=== PATIENT | female | born 1990 | race Caucasian/White ===

== ENCOUNTER 2017-02-11 07:56 | Inpatient (IN) | payer BC ==
[2017-02-11] MEDS ORDERED: Ampicillin 2 GM in Sodium Chloride 0.9% 100 ML IV ONE (08:17)
[2017-02-11] MEDS ORDERED: Nalbuphine 10 MG/1 ML Vial IVPUSH PRN (08:17)
[2017-02-11] MEDS ORDERED: Lidocaine 1% 50 ML MDV INJECT PRN (08:17)
[2017-02-11] MEDS ORDERED: Sodium Chloride 0.9% 10 ML Syringe FLUSH PRN (08:17)
[2017-02-11] MEDS ORDERED: Misoprostol 200 MCG Tab PO PRN (08:17)
[2017-02-11] MEDS ORDERED: Water For Irrigation,Sterile 1,000 ML Container IRR PRN (08:17)
[2017-02-11] MEDS ORDERED: Sodium Chloride 0.9% 2.5 ML Syringe FLUSH PRN (08:17)
[2017-02-11] MEDS ORDERED: Butorphanol 1 MG/ML SDV IVPUSH PRN (08:17)
[2017-02-11] MEDS ORDERED: Carboprost Tromethamine 250 MCG/1 ML Amp IM PRN (08:17)
[2017-02-11] MEDS ORDERED: Methylergonovine 0.2 MG/1 ML Amp IM PRN (08:17)
[2017-02-11] MEDS ORDERED: Terbutaline 1 MG/ML SDV SUBCUT PRN ×2 (08:19→16:37)
[2017-02-11] MEDS ORDERED: Oxytocin/0.9 % Sodium Chloride 30 UNIT/500 ML BAG IV SCH (08:30)
[2017-02-11] MEDS: Lactated Ringers 1,000 ML IV SCH (08:51)
--- NOTE | 2017-02-11 10:54 | PCM.LDHP ---
L&D History of Present Illness - General Date of Service: 02/11/17 Admit Problem/Dx: Patient Status Order with Admit Dx/Problem 02/11/17 08:17 Patient Status [ADT] Routine Admission Diagnosis/Problem Admission Diagnosis/Problem 02/11/17 10:51 26 yo 39 1/7wks EDC 02/17/2017, O+, R-equivocal, GBS pos. 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 Source of Information: Patient History Limitations: Reports: No Limitations - History of Present Illness Introduction:: Term; social Improves with: Reports: None Worsens with: Reports: None Associated Symptoms: Reports: N - Related Data Allergies/Adverse Reactions: Allergies Allergy/AdvReac Type Severity Reaction Status Date / Time No Known Allergies Allergy Verified 03/27/15 22:52 Past Medical History HEENT History: Reports: None Gastrointestinal History: Reports: None PLATEMAN History: Reports: Psychiatric History: Reports: Anxiety, Depression Dermatologic History: Reports: Psoriasis - Infectious Disease History Infectious Disease History: Reports: Chicken Pox, Herpes - Past Surgical History HEENT Surgical History: Reports: Adenoidectomy, Tonsillectomy GI Surgical History: Reports: Appendectomy Social & Family History - Family History HEENT: Reports: Impaired Vision Cardiac: Reports: Heart Failure, Hypertension : Reports: Pyelonephritis OBGYN: Reports: , Recurrent Spontaneous Musculoskeletal: Reports: Arthritis, RA Neurological: Reports: Alzheimers Disease Psychiatric: Reports: Anxiety, Autism, Depression, Mood Swings, Panic Attack Endocrine/Metabolic: Reports: Diabetes, Type I, Hypothyroidism Oncologic: Reports: Lung, Skin, Other (See Below) Other Oncologic Family History: melanoma - Tobacco Use Smoking Status *Q: Former Smoker Used Tobacco, but Quit: Yes Month Tobacco Last Used: 2011 Second Hand Smoke Exposure: No - Recreational Drug Use Recreational Drug Use: No H&P Review of Systems - Review of Systems: Review Of Systems: See Below General: Reports: No Symptoms HEENT: Reports: No Symptoms Pulmonary: Reports: No Symptoms Cardiovascular: Reports: No Symptoms Gastrointestinal: Reports: No Symptoms Genitourinary: Reports: No Symptoms Musculoskeletal: Reports: No Symptoms Skin: Reports: No Symptoms Psychiatric: Reports: No Symptoms Neurological: Reports: No Symptoms Hematologic/Lymphatic: Reports: No Symptoms Immunologic: Reports: No Symptoms L&D Exam - Exam Exam: See Below - Vital Signs Weight: 74.843 kg - OB Specific Contraction Intensity: Mild Movement: Active Heart Tones: Present Heart Rate (FHR) Variability: Moderate (6-25 bmp) Presentation: Vertex - Garvin Score Garvin Score Cervix Position: Midposition Garvin Score Consistency: Soft Garvin Score Effacement: 51-70% Garvin Score Dilation: 3-4 cm Garvin Score Infant's Station: -2 Garvin Score Total: 8 - Exam General: Alert, Oriented, Cooperative HEENT: Hearing Intact Lungs: Normal Respiratory Effort GI/Abdominal Exam: Soft, Non-Tender, No Organomegaly (gravid) Rectal Exam: Deferred Genitourinary: Cervical dilitation Back Exam: Full Range of Motion Extremities: Normal Range of Motion, Non-Tender, No Pedal Edema, Normal Capillary Refill Skin: Warm, Dry, Intact Neurological: Reflexes Equal Bilateral, Normal Speech Psychiatric: Alert, Normal Affect, Normal Mood - Patient Data Lab Results Last 24 hrs: Laboratory Results - last 24 hr 02/11/17 02/11/17 Range/Units 08:41 08:41 WBC 11.38 H (4.0-11.0) K/uL RBC 3.53 L (4.30-5.90) M/uL Hgb 9.2 L (12.0-16.0) g/dL Hct 27.9 L (36.0-46.0) % MCV 79.0 L (80.0-98.0) fL MCH 26.1 L (27.0-32.0) pg MCHC 33.0 (31.0-37.0) g/dL RDW Std Deviation 44.4 (28.0-62.0) fl RDW Coeff of Elliott 15 (11.0-15.0) % Plt Count 281 (150-400) K/uL MPV 10.70 (7.40-12.00) fL Nucleated RBC % 0.0 /100WBC Nucleated RBCs # 0 K/uL Blood Type O POSITIVE Antibody Screen NEGATIVE Result Diagrams: 02/11/17 08:41 - Problem List (1) Supervision of normal IUP (intrauterine ) in multigravida SNOMED Code(s): 786264227, 631051075 ICD Code: Z34.80 - ENCOUNTER FOR SUPRVSN OF NORMAL , UNSP TRIMESTER Status: Acute Priority: High Current Visit: Yes Qualifiers: Trimester: third trimester Qualified Code(s): Z34.83 - Encounter for supervision of other normal , third trimester Problem List Initiated/Reviewed/Updated: Yes Orders Last 24hrs: Active Orders 24 hr Category Date Time Status Patient Status [ADT] Routine ADT 02/11/17 08:17 Active Bedrest Bathroom Privileges [RC] ASDIRECTED Care 02/11/17 08:19 Active Communication Order [RC] ASDIRECTED Care 02/11/17 08:19 Active Communication Order [RC] ASDIRECTED Care 02/11/17 08:19 Active Heart Tones [RC] CONTINUOUS Care 02/11/17 08:17 Active Non Stress Test [RC] PER UNIT ROUTINE Care 02/11/17 08:17 Active May Shower [RC] ASDIRECTED Care 02/11/17 08:17 Active Notify Provider [RC] PRN Care 02/11/17 08:17 Active Notify Provider [RC] PRN Care 02/11/17 08:19 Active Oxygen Therapy [RC] ASDIRECTED Care 02/11/17 08:19 Active Up ad Keyonna [RC] ASDIRECTED Care 02/11/17 08:17 Active Vaginal Exam [RC] PRN Care 02/11/17 08:17 Active Vaginal Exam [RC] PRN Care 02/11/17 08:19 Active Vital Signs [RC] PER UNIT ROUTINE Care 02/11/17 08:17 Active Vital Signs [RC] PER UNIT ROUTINE Care 02/11/17 08:19 Active Ampicillin 1 gm Med 02/11/17 13:00 Active Sodium Chloride 0.9% [Normal Saline] 50 ml IV Q4H Butorphanol [Stadol] Med 02/11/17 08:17 Active 1 mg IVPUSH Q1H PRN Carboprost Tromethamine [Hemabate DS] Med 02/11/17 08:17 Active 250 mcg IM ASDIRECTED PRN Lactated Ringers [Ringers, Lactated] 1,000 ml Med 02/11/17 08:30 Active IV ASDIRECTED Lidocaine 1% [Xylocaine 1%] Med 02/11/17 08:17 Active 50 ml INJECT .ONCE PRN Methylergonovine [Methergine] Med 02/11/17 08:17 Active 0.2 mg IM ASDIRECTED PRN Misoprostol [Cytotec] Med 02/11/17 08:17 Active 200 mcg PO .ONCE PRN Nalbuphine [Nubain] Med 02/11/17 08:17 Active 10 mg IVPUSH Q1H PRN Oxytocin/0.9 % Sodium Chloride [Oxytocin 30 Unit/500 ML Med 02/11/17 08:30 Active -NS] 30 unit in 500 ml IV TITRATE Sodium Chloride 0.9% [Saline Flush] Med 02/11/17 08:17 Active 10 ml FLUSH ASDIRECTED PRN Sodium Chloride 0.9% [Saline Flush] Med 02/11/17 08:17 Active 2.5 ml FLUSH ASDIRECTED PRN Terbutaline [Brethine] Med 02/11/17 08:19 Active 0.25 mg SUBCUT ASDIRECTED PRN Water For Irrigation,Sterile [Sterile Water for Med 02/11/17 08:17 Active Irrigation] 1,000 ml IRR ASDIRECTED PRN Scalp Electrode [WOMSER] Per Unit Routine Oth 02/11/17 08:17 Ordered Medication Administration Instruction [OM.PC] Q3H Oth 02/11/17 08:30 Ordered Peripheral IV Insertion Adult [OM.PC] Routine Oth 02/11/17 08:17 Ordered Resuscitation Status Routine Resus Stat 02/11/17 08:17 Ordered Medication Orders Butorphanol Tartrate (Stadol) 1 mg IVPUSH Q1H PRN PRN Reason: Pain Carboprost Tromethamine (Hemabate Ds) 250 mcg IM ASDIRECTED PRN PRN Reason: Post Hemorrhage Lactated Ringer's (Ringers, Lactated) 1,000 mls @ 150 mls/hr IV ASDIRECTED ROSY Last Admin: 02/11/17 08:51 Dose: 150 mls/hr Oxytocin/Sodium Chloride (Oxytocin 30 Unit/500 Ml-Ns) 30 unit in 500 mls @ 2 mls/hr IV TITRATE ROSY; 2 MUNITS/MIN PRN Reason: Protocol Last Titration: 02/11/17 10:48 Dose: 6 munits/min, 6 mls/hr Titration: 02/11/17 10:08 Dose: 4 munits/min, 4 mls/hr Admin: 02/11/17 09:36 Dose: 2 munits/min, 2 mls/hr Ampicillin Sodium 1 gm/ Sodium (Chloride) 50 mls @ 100 mls/hr IV Q4H ROSY Lidocaine HCl (Xylocaine 1%) 50 ml INJECT .ONCE PRN PRN Reason: Laceration repair Methylergonovine Maleate (Methergine) 0.2 mg IM ASDIRECTED PRN PRN Reason: Post Hemorrhage Misoprostol (Cytotec) 200 mcg PO .ONCE PRN PRN Reason: Post Hemorrhage Nalbuphine HCl (Nubain) 10 mg IVPUSH Q1H PRN PRN Reason: Pain (severe 7-10) Sodium Chloride (Saline Flush) 10 ml FLUSH ASDIRECTED PRN PRN Reason: Keep Vein Open Sodium Chloride (Saline Flush) 2.5 ml FLUSH ASDIRECTED PRN PRN Reason: Keep Vein Open Sterile Water (Sterile Water For Irrigation) 1,000 ml IRR ASDIRECTED PRN PRN Reason: delivery Terbutaline Sulfate (Brethine) 0.25 mg SUBCUT ASDIRECTED PRN PRN Reason: Tacysystole Assessment/Plan Comment:: IOL A: 26 yo 39 7wks EDC 02/17/2017, O+, R-equivocal, GBS pos. 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 Dr Goodson updated on pt status
[2017-02-11] MEDS: Ampicillin 1 GM in Sodium Chloride 0.9% 50 ML IV SCH ×3 (13:12→21:05)
[2017-02-11] MEDS ORDERED: Misoprostol 25 MCG (1/4 of 100 MCG) Tab VAG PRN (16:37)
[2017-02-11] MEDS ORDERED: Misoprostol 25 MCG (1/4 of 100 MCG) Tab PO ONE (16:39)
[2017-02-11] MEDS ORDERED: Misoprostol 25 MCG (1/4 of 100 MCG) Tab PO PRN (16:40)
[2017-02-11] MEDS ORDERED: Misoprostol 25 MCG (1/4 of 100 MCG) Tab VAG SCH (16:45)
[2017-02-11] MEDS ORDERED: hydrOXYzine Pamoate 25 MG Cap PO ONE (21:45)
[2017-02-11] MEDS ORDERED: hydrOXYzine Pamoate 25 MG Cap ONE (21:51)
[2017-02-12] MEDS: Ampicillin 1 GM in Sodium Chloride 0.9% 50 ML IV SCH ×4 (01:09→13:11)
[2017-02-12] MEDS: Lactated Ringers 1,000 ML IV SCH ×2 (05:35→09:48)
--- NOTE | 2017-02-12 09:54 | PCM.PREANE ---
Preanesthetic Assessment - Anesthesia/Transfusion/Family Hx Anesthesia History: Prior Anesthesia Without Reaction Transfusion History: Prior Transfusion Without Reaction - Review of Systems General: No Symptoms Pulmonary: No Symptoms Cardiovascular: No Symptoms Gastrointestinal: No Symptoms Neurological: No Symptoms Other: Reports: None - Physical Assessment Height: 5 ft 3 in Weight: 74.843 kg ASA Class: 2 Mental Status: Alert & Oriented x3 Airway Class: Mallampati = 2 Dentition: Reports: Normal Dentition Thyro-Mental Finger Breadths: 3 Mouth Opening Finger Breadths: 3 ROM/Head Extension: Full Lungs: Clear to Auscultation, Normal Respiratory Effort Cardiovascular: Regular Rate, Regular Rhythm - Lab Values: Laboratory Last Values WBC 11.38 K/uL (4.0-11.0) H 02/11/17 08:41 RBC 3.53 M/uL (4.30-5.90) L 02/11/17 08:41 Hgb 9.2 g/dL (12.0-16.0) L 02/11/17 08:41 Hct 27.9 % (36.0-46.0) L 02/11/17 08:41 MCV 79.0 fL (80.0-98.0) L 02/11/17 08:41 MCH 26.1 pg (27.0-32.0) L 02/11/17 08:41 MCHC 33.0 g/dL (31.0-37.0) 02/11/17 08:41 RDW Std Deviation 44.4 fl (28.0-62.0) 02/11/17 08:41 RDW Coeff of Elliott 15 % (11.0-15.0) 02/11/17 08:41 Plt Count 281 K/uL (150-400) 02/11/17 08:41 MPV 10.70 fL (7.40-12.00) 02/11/17 08:41 Nucleated RBC % 0.0 /100WBC 02/11/17 08:41 Nucleated RBCs # 0 K/uL 02/11/17 08:41 Blood Type O POSITIVE 02/11/17 08:41 Antibody Screen NEGATIVE 02/11/17 08:41 - Allergies Allergies/Adverse Reactions: Allergies Allergy/AdvReac Type Severity Reaction Status Date / Time No Known Allergies Allergy Verified 03/27/15 22:52 - Acknowledgements Anesthesia Type Planned: Epidural Pt an Appropriate Candidate for the Planned Anesthesia: Yes Alternatives and Risks of Anesthesia Discussed w Pt/Guardian: Yes Pt/Guardian Understands and Agrees with Anesthesia Plan: Yes PreAnesthesia Questionnaire HEENT History: Reports: None Cardiovascular History: Reports: None Respiratory History: Reports: None Gastrointestinal History: Reports: GERD Genitourinary History: Reports: None NURSE COORDINATOR History: Reports: : 3 Para: 2 LMP (Approximate): Psychiatric History: Reports: Anxiety, Depression Endocrine/Metabolic History: Reports: None Hematologic History: Reports: None Immunologic History: Reports: None Oncologic (Cancer) History: Reports: None Dermatologic History: Reports: Psoriasis - Infectious Disease History Infectious Disease History: Reports: Chicken Pox, Herpes - Past Surgical History HEENT Surgical History: Reports: Adenoidectomy, Tonsillectomy GI Surgical History: Reports: Appendectomy - SUBSTANCE USE Smoking Status *Q: Former Smoker Tobacco Use Within Last Twelve Months: No Second Hand Smoke Exposure: No Recreational Drug Use History: No - CURRENT (IN HOUSE) MEDS Current Meds: Current Medications Butorphanol Tartrate (Stadol) 1 mg IVPUSH Q1H PRN PRN Reason: Pain Carboprost Tromethamine (Hemabate Ds) 250 mcg IM ASDIRECTED PRN PRN Reason: Post Hemorrhage Lactated Ringer's (Ringers, Lactated) 1,000 mls @ 150 mls/hr IV ASDIRECTED ROSY Last Admin: 02/12/17 09:48 Dose: 999 mls/hr Oxytocin/Sodium Chloride (Oxytocin 30 Unit/500 Ml-Ns) 30 unit in 500 mls @ 2 mls/hr IV TITRATE ROSY; 2 MUNITS/MIN PRN Reason: Protocol Last Titration: 02/12/17 09:44 Dose: 8 munits/min, 8 mls/hr Ampicillin Sodium 1 gm/ Sodium (Chloride) 50 mls @ 100 mls/hr IV Q4H ROSY Last Admin: 02/12/17 09:08 Dose: 100 mls/hr Lidocaine HCl (Xylocaine 1%) 50 ml INJECT .ONCE PRN PRN Reason: Laceration repair Methylergonovine Maleate (Methergine) 0.2 mg IM ASDIRECTED PRN PRN Reason: Post Hemorrhage Misoprostol (Cytotec) 200 mcg PO .ONCE PRN PRN Reason: Post Hemorrhage Misoprostol (Cytotec) 25 mcg VAG .ONCE ROSY Last Admin: 02/11/17 17:29 Dose: 25 mcg Misoprostol (Cytotec) 25 mcg VAG Q4H PRN PRN Reason: Cervical Ripening Last Admin: 02/11/17 21:11 Dose: 25 mcg Misoprostol (Cytotec) 25 mcg PO Q4H PRN PRN Reason: Other Last Admin: 02/11/17 21:09 Dose: 25 mcg Nalbuphine HCl (Nubain) 10 mg IVPUSH Q1H PRN PRN Reason: Pain (severe 7-10) Sodium Chloride (Saline Flush) 10 ml FLUSH ASDIRECTED PRN PRN Reason: Keep Vein Open Sodium Chloride (Saline Flush) 2.5 ml FLUSH ASDIRECTED PRN PRN Reason: Keep Vein Open Sterile Water (Sterile Water For Irrigation) 1,000 ml IRR ASDIRECTED PRN PRN Reason: delivery Terbutaline Sulfate (Brethine) 0.25 mg SUBCUT ASDIRECTED PRN PRN Reason: Tacysystole Terbutaline Sulfate (Brethine) 0.25 mg SUBCUT ASDIRECTED PRN PRN Reason: Tacysystole Discontinued Medications Hydroxyzine Pamoate (Vistaril) 50 mg PO ONETIME ONE Stop: 02/11/17 21:46 Last Admin: 02/11/17 21:57 Dose: 50 mg Hydroxyzine Pamoate (Vistaril) Confirm Administered Dose 50 mg .ROUTE .STK-MED ONE Stop: 02/11/17 21:52 Ampicillin Sodium 2 gm/ Sodium (Chloride) 100 mls @ 200 mls/hr IV ONETIME ONE Stop: 02/11/17 08:46 Last Admin: 02/11/17 08:52 Dose: 200 mls/hr Misoprostol (Cytotec) 25 mcg PO ONETIME ONE Stop: 02/11/17 16:40 Last Admin: 02/11/17 17:27 Dose: 25 mcg
[2017-02-12] MEDS ORDERED: fentaNYL 100 MCG/2 ML SDV ONE (09:58)
[2017-02-12] MEDS ORDERED: Ropivacaine HCl/PF 100 ML ONE (09:58)
--- NOTE | 2017-02-12 16:41 | PCM.DEL ---
L & D Note - General Info Date of Service: 02/12/17 Mother's Due Date: 02/17/17 - Delivery Note Cervical Ripening Method: Misoprostil, Oxytocin Delivery Outcome: Livebirth Infant Delivery Method: Spontaneous Vaginal Delivery-Single Delivery Mode: Spontaneous Presentation: Vertex Nuchal Cord: Present Anesthesia Type: Epidural Amniotic Fluid Description: Clear Episiotomy Type: None Laceration: None Suture size: 3-0 Placenta: Intact, Spontaneous Cord: 3 Vessels Estimated Blood Loss: 150 Resuscitation Needed: No : Warmed Score 1 min: 8 Score 5 min: 9 Second Stage Interventions: Reports: Pushing Effectively, Pushing, Pulls Own Legs Back Delivery Comments (Free Text/Narrative):: of viable female over intact perineum. Head delivered with great pushing, nuchel x1 reduced over head, compound left arm with head, should and body followed easily. to mothers abdomen with RN at for evaluation. Spont cry. Delayed cord clamping. Pitocin to IVF. Cord clamped and cut by FOB. Cord blood collected. Placenta delivered grossly intact. Bimanual normal. Inspection noted intact perineum. EBL 150cc, APGARS 8/9, WT pending bonding. Mother and baby left in stable condition for recovery. Induction Criteria - Garvin Score Garvin Score Dilation: 3-4 cm Garvin Score Effacement: 60-70% Garvin Score Infant's Station: -2 Garvin Score Consistency: Soft Garvin Score Cervix Position: Midposition Garvin Score Total: 8 Garvin Score Presenting Part: Reports: Cephalic - Induction Gestational Age >/= 39 wks: Yes Medical Indication: Social Estimated Pelvis: Reports: Adequate Reassuring Monitoring Strip: Yes Absence of Tachy Systole: Yes - General Info Date of Service: 02/12/17 Admission Dx/Problem (Free Text): Patient Status Order with Admit Dx/Problem 02/11/17 08:17 Patient Status [ADT] Routine Admission Diagnosis/Problem Admission Diagnosis/Problem 02/11/17 10:51 26 yo 39 1/7wks EDC 02/17/2017, O+, R-equivocal, GBS pos. 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 Functional Status: Reports: Pain Controlled - Review of Systems General: Reports: No Symptoms HEENT: Reports: No Symptoms Pulmonary: Reports: No Symptoms Cardiovascular: Reports: No Symptoms Gastrointestinal: Reports: No Symptoms Genitourinary: Reports: No Symptoms Musculoskeletal: Reports: No Symptoms Skin: Reports: No Symptoms Neurological: Reports: No Symptoms Psychiatric: Reports: No Symptoms - Patient Data Weight - Most Recent: 74.843 kg I&O - Last 24 Hours: Intake & Output 02/12/17 02/12/17 02/12/17 06:59 14:59 22:59 Intake Total 1100 Balance 1100 Med Orders - Current: Current Medications Butorphanol Tartrate (Stadol) 1 mg IVPUSH Q1H PRN PRN Reason: Pain Carboprost Tromethamine (Hemabate Ds) 250 mcg IM ASDIRECTED PRN PRN Reason: Post Hemorrhage Lactated Ringer's (Ringers, Lactated) 1,000 mls @ 150 mls/hr IV ASDIRECTED ROSY Last Admin: 02/12/17 09:48 Dose: 999 mls/hr Oxytocin/Sodium Chloride (Oxytocin 30 Unit/500 Ml-Ns) 30 unit in 500 mls @ 2 mls/hr IV TITRATE ROSY; 2 MUNITS/MIN PRN Reason: Protocol Last Titration: 02/12/17 13:12 Dose: 12 munits/min, 12 mls/hr Ampicillin Sodium 1 gm/ Sodium (Chloride) 50 mls @ 100 mls/hr IV Q4H ROSY Last Admin: 02/12/17 13:11 Dose: 100 mls/hr Lidocaine HCl (Xylocaine 1%) 50 ml INJECT .ONCE PRN PRN Reason: Laceration repair Methylergonovine Maleate (Methergine) 0.2 mg IM ASDIRECTED PRN PRN Reason: Post Hemorrhage Misoprostol (Cytotec) 200 mcg PO .ONCE PRN PRN Reason: Post Hemorrhage Misoprostol (Cytotec) 25 mcg VAG .ONCE ROSY Last Admin: 02/11/17 17:29 Dose: 25 mcg Misoprostol (Cytotec) 25 mcg VAG Q4H PRN PRN Reason: Cervical Ripening Last Admin: 02/11/17 21:11 Dose: 25 mcg Misoprostol (Cytotec) 25 mcg PO Q4H PRN PRN Reason: Other Last Admin: 02/11/17 21:09 Dose: 25 mcg Nalbuphine HCl (Nubain) 10 mg IVPUSH Q1H PRN PRN Reason: Pain (severe 7-10) Sodium Chloride (Saline Flush) 10 ml FLUSH ASDIRECTED PRN PRN Reason: Keep Vein Open Sodium Chloride (Saline Flush) 2.5 ml FLUSH ASDIRECTED PRN PRN Reason: Keep Vein Open Sterile Water (Sterile Water For Irrigation) 1,000 ml IRR ASDIRECTED PRN PRN Reason: delivery Terbutaline Sulfate (Brethine) 0.25 mg SUBCUT ASDIRECTED PRN PRN Reason: Tacysystole Terbutaline Sulfate (Brethine) 0.25 mg SUBCUT ASDIRECTED PRN PRN Reason: Tacysystole Discontinued Medications Fentanyl (Sublimaze) Confirm Administered Dose 100 mcg .ROUTE .STK-MED ONE Stop: 02/12/17 09:59 Hydroxyzine Pamoate (Vistaril) 50 mg PO ONETIME ONE Stop: 02/11/17 21:46 Last Admin: 02/11/17 21:57 Dose: 50 mg Hydroxyzine Pamoate (Vistaril) Confirm Administered Dose 50 mg .ROUTE .STK-MED ONE Stop: 02/11/17 21:52 Ampicillin Sodium 2 gm/ Sodium (Chloride) 100 mls @ 200 mls/hr IV ONETIME ONE Stop: 02/11/17 08:46 Last Admin: 02/11/17 08:52 Dose: 200 mls/hr Ropivacaine (Naropin 0.2%) Confirm Administered Dose 100 mls @ as directed .ROUTE .STK-MED ONE Stop: 02/12/17 09:59 Misoprostol (Cytotec) 25 mcg PO ONETIME ONE Stop: 02/11/17 16:40 Last Admin: 02/11/17 17:27 Dose: 25 mcg - Exam General: Alert, Oriented, Cooperative, No Acute Distress Lungs: Normal Respiratory Effort GI/Abdominal Exam: Soft, Non-Tender (Female) Exam: Normal External Exam, Normal Bimanual Exam, Vaginal Bleeding Back Exam: Full Range of Motion Extremities: Normal Range of Motion, Non-Tender, No Pedal Edema, Normal Capillary Refill Skin: Warm, Dry, Intact Wound/Incisions: Healing Well Neurological: No New Focal Deficit, Normal Speech, Normal Tone Psy/Mental Status: Alert, Normal Affect, Normal Mood - Problem List & Annotations (1) Supervision of normal IUP (intrauterine ) in multigravida SNOMED Code(s): 612842040, 378719748 Code(s): Z34.80 - ENCOUNTER FOR SUPRVSN OF NORMAL , UNSP TRIMESTER Status: Acute Priority: High Current Visit: Yes Qualifiers: Trimester: third trimester Qualified Code(s): Z34.83 - Encounter for supervision of other normal , third trimester (2) (normal spontaneous vaginal delivery) SNOMED Code(s): 70626995 Code(s): O80 - ENCOUNTER FOR FULL-TERM UNCOMPLICATED DELIVERY Status: Acute Priority: High Current Visit: Yes - Problem List Review Problem List Initiated/Reviewed/Updated: Yes - My Orders Last 24 Hours: My Active Orders 02/11/17 16:37 Communication Order [RC] ASDIRECTED Notify Provider [RC] PRN Notify Provider [RC] STAT Misoprostol [Cytotec] 25 mcg VAG Q4H PRN Terbutaline [Brethine] 0.25 mg SUBCUT ASDIRECTED PRN 02/11/17 16:40 Misoprostol [Cytotec] 25 mcg PO Q4H PRN 02/11/17 16:45 Misoprostol [Cytotec] 25 mcg VAG .ONCE - Assessment Assessment:: Delivery A: viable healthy female. APGARS 8/9, Wt pending, intact perineum, EBL 150cc, stable - Plan Plan:: IOL A: 26 yo 39 1/7wks EDC 02/17/2017, O+, R-equivocal, GBS pos. 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 Dr Goodson updated on pt status Delivery P: Routine pp plan of care
[2017-02-12] MEDS ORDERED: Acetaminophen 500 MG Tab PO PRN ×2 (16:46)
[2017-02-12] MEDS ORDERED: Bisacodyl 10 MG Supp RECTAL PRN (16:46)
[2017-02-12] MEDS ORDERED: Lanolin 100% Cream 7 GM Tube TOP PRN (16:46)
[2017-02-12] MEDS ORDERED: Docusate Sodium 100 MG Cap PO PRN (16:46)
[2017-02-12] MEDS ORDERED: Witch Hazel Medicated Pads 40/Jar TOP PRN (16:46)
[2017-02-12] MEDS ORDERED: Benzocaine/Menthol 20%-0.5% Spray 78 GM Cannister TOP PRN (16:46)
[2017-02-12] MEDS ORDERED: oxyCODONE 5 MG Tab PO PRN (16:46)
[2017-02-12] MEDS ORDERED: Ibuprofen 400 MG Tab PO PRN (16:46)
[2017-02-12] MEDS: Ibuprofen 800 MG Tab PO PRN (17:30)
[2017-02-13] MEDS: Ibuprofen 800 MG Tab PO PRN (08:13)
--- NOTE | 2017-02-13 17:23 | PCM.DCSUM1 ---
Discharge Summary - Hospital Course Free Text/Narrative:: Discharge home with infant. Follow up in 6 weeks for post visit. - Discharge Data Discharge Date: 02/13/17 Discharge Disposition: Home, Self-Care 01 Condition: Good - Discharge Diagnosis/Problem(s) (1) Supervision of normal IUP (intrauterine ) in multigravida SNOMED Code(s): 310645721, 693360342 ICD Code: Z34.80 - ENCOUNTER FOR SUPRVSN OF NORMAL , UNSP TRIMESTER Status: Acute Priority: High Current Visit: Yes Qualifiers: Trimester: third trimester Qualified Code(s): Z34.83 - Encounter for supervision of other normal , third trimester (2) (normal spontaneous vaginal delivery) SNOMED Code(s): 52242164 ICD Code: O80 - ENCOUNTER FOR FULL-TERM UNCOMPLICATED DELIVERY Status: Acute Priority: High Current Visit: Yes - Patient Instructions Diet: Usual Diet as Tolerated Activity: As Tolerated, Rest and Relax Today Driving: May Drive Today Showering/Bathing: May Shower Notify Provider of: Fever, Increased Pain, Swelling and Redness, Nausea and/or Vomiting Other/Special Instructions: Discharge home with . Follow up in 6 weeks for post visit. - Discharge Plan Referrals: [facility] [Outside] Alexandra Shankar CNM [Mid-] - 03/27/17 10:45 am - General Info Date of Service: 02/13/17 Admission Dx/Problem (Free Text: Patient Status Order with Admit Dx/Problem 02/11/17 08:17 Patient Status [ADT] Routine Admission Diagnosis/Problem Admission Diagnosis/Problem 02/11/17 10:51 26 yo 39 /7wks EDC 02/17/2017, O+, R-equivocal, GBS pos. IOL for social and child and adolescent therapist issues Functional Status: Reports: Pain Controlled, Tolerating Diet, Ambulating, Urinating - Review of Systems General: Reports: No Symptoms HEENT: Reports: No Symptoms Pulmonary: Reports: No Symptoms Cardiovascular: Reports: No Symptoms Gastrointestinal: Reports: No Symptoms Genitourinary: Reports: No Symptoms Musculoskeletal: Reports: No Symptoms Skin: Reports: No Symptoms Neurological: Reports: No Symptoms Psychiatric: Reports: No Symptoms - Patient Data Vitals - Most Recent: Last Vital Signs Temp 36.9 C 02/13/17 08:00 Pulse 74 02/13/17 08:00 Resp 16 02/13/17 08:00 BP 116/63 02/13/17 08:00 Pulse Ox 96 02/13/17 08:00 Weight - Most Recent: 74.843 kg Med Orders - Current: Current Medications Acetaminophen (Tylenol Extra Strength) 500 mg PO Q4H PRN PRN Reason: Pain Acetaminophen (Tylenol Extra Strength) 1,000 mg PO Q4H PRN PRN Reason: Pain Last Admin: 02/12/17 22:47 Dose: 1,000 mg Benzocaine/Menthol (Dermoplast Pain Relief 20%-0.5% [place]) 78 gm TOP ASDIRECTED PRN PRN Reason: Perineal Comfort Measure Bisacodyl (Dulcolax) 10 mg RECTAL .ONCE PRN PRN Reason: Constipation Docusate Sodium (Colace) 100 mg PO BID PRN PRN Reason: Constipation Emollient Ointment (Lansinoh Hpa) 0 gm TOP ASDIRECTED PRN PRN Reason: Sore Nipples Ibuprofen (Motrin) 400 mg PO Q4H PRN PRN Reason: Pain Ibuprofen (Motrin) 800 mg PO Q6H PRN PRN Reason: Pain Last Admin: 02/13/17 08:13 Dose: 800 mg Oxycodone HCl (Oxycodone) 5 mg PO Q2H PRN PRN Reason: Pain Witch Cris (Tucks) 1 pad TOP ASDIRECTED PRN PRN Reason: comfort care Discontinued Medications Butorphanol Tartrate (Stadol) 1 mg IVPUSH Q1H PRN PRN Reason: Pain Carboprost Tromethamine (Hemabate Ds) 250 mcg IM ASDIRECTED PRN PRN Reason: Post Hemorrhage Fentanyl (Sublimaze) Confirm Administered Dose 100 mcg .ROUTE .STK-MED ONE Stop: 02/12/17 09:59 Hydroxyzine Pamoate (Vistaril) 50 mg PO ONETIME ONE Stop: 02/11/17 21:46 Last Admin: 02/11/17 21:57 Dose: 50 mg Hydroxyzine Pamoate (Vistaril) Confirm Administered Dose 50 mg .ROUTE .STK-MED ONE Stop: 02/11/17 21:52 Ampicillin Sodium 2 gm/ Sodium (Chloride) 100 mls @ 200 mls/hr IV ONETIME ONE Stop: 02/11/17 08:46 Last Admin: 02/11/17 08:52 Dose: 200 mls/hr Lactated Ringer's (Ringers, Lactated) 1,000 mls @ 150 mls/hr IV ASDIRECTED ROSY Last Admin: 02/12/17 09:48 Dose: 999 mls/hr Oxytocin/Sodium Chloride (Oxytocin 30 Unit/500 Ml-Ns) 30 unit in 500 mls @ 2 mls/hr IV TITRATE ROSY; 2 MUNITS/MIN PRN Reason: Protocol Last Titration: 02/12/17 13:12 Dose: 12 munits/min, 12 mls/hr Ampicillin Sodium 1 gm/ Sodium (Chloride) 50 mls @ 100 mls/hr IV Q4H ROSY Last Admin: 02/12/17 13:11 Dose: 100 mls/hr Ropivacaine (Naropin 0.2%) Confirm Administered Dose 100 mls @ as directed .ROUTE .[facility]-MED ONE Stop: 02/12/17 09:59 Lidocaine HCl (Xylocaine 1%) 50 ml INJECT .ONCE PRN PRN Reason: Laceration repair Methylergonovine Maleate (Methergine) 0.2 mg IM ASDIRECTED PRN PRN Reason: Post Hemorrhage Misoprostol (Cytotec) 200 mcg PO .ONCE PRN PRN Reason: Post Hemorrhage Misoprostol (Cytotec) 25 mcg VAG .ONCE ROSY Last Admin: 02/11/17 17:29 Dose: 25 mcg Misoprostol (Cytotec) 25 mcg VAG Q4H PRN PRN Reason: Cervical Ripening Last Admin: 02/11/17 21:11 Dose: 25 mcg Misoprostol (Cytotec) 25 mcg PO ONETIME ONE Stop: 02/11/17 16:40 Last Admin: 02/11/17 17:27 Dose: 25 mcg Misoprostol (Cytotec) 25 mcg PO Q4H PRN PRN Reason: Other Last Admin: 02/11/17 21:09 Dose: 25 mcg Nalbuphine HCl (Nubain) 10 mg IVPUSH Q1H PRN PRN Reason: Pain (severe 7-10) Sodium Chloride (Saline Flush) 10 ml FLUSH ASDIRECTED PRN PRN Reason: Keep Vein Open Sodium Chloride (Saline Flush) 2.5 ml FLUSH ASDIRECTED PRN PRN Reason: Keep Vein Open Sterile Water (Sterile Water For Irrigation) 1,000 ml IRR ASDIRECTED PRN PRN Reason: delivery Terbutaline Sulfate (Brethine) 0.25 mg SUBCUT ASDIRECTED PRN PRN Reason: Tacysystole Terbutaline Sulfate (Brethine) 0.25 mg SUBCUT ASDIRECTED PRN PRN Reason: Tacysystole - Exam General: Reports: Alert, Oriented, Cooperative, No Acute Distress Lungs: Reports: Normal Respiratory Effort GI/Abdominal Exam: Soft, Non-Tender, No Organomegaly (Female) Exam: Vaginal Bleeding Rectal (Female) Exam: Deferred Back Exam: Reports: Full Range of Motion Extremities: Normal Range of Motion, Non-Tender, No Pedal Edema, Normal Capillary Refill Skin: Reports: Warm, Dry, Intact Wound/Incisions: Reports: Healing Well Neurological: Reports: No New Focal Deficit, Normal Gait, Normal Speech, Normal Tone Psy/Mental Status: Reports: Alert, Normal Affect, Normal Mood *Q Meaningful Use (DIS) - VTE *Q VTE Criteria *Q: - Stroke *Q Stroke Criteria *Q: - AMI *Q AMI Criteria *Q:
[2017-02-13 18:00] VITALS: BP 110/73
== END 2017-02-13 18:05 | disposition home or self-care (01) | DRG 560 ==
LOC: MW.OBCHECK 07:56 → MW.OB 07:59 → MW.OBCHECK 08:17 → MW.OB 02-12 09:39 → OBSVTOIN 02-12 16:47
PROVIDERS: ADMIT Obstetrics & Gynecology; ATTEND Obstetrics & Gynecology
PROC: 10E0XZZ Delivery of Products of Conception, External Approach (ICD-10-PCS; principal; 2017-02-12)
PROC: 3E0P7VZ Introduction of Hormone into Female Reproductive, Via Natural or Artificial Opening (ICD-10-PCS; 2017-02-12)
PROC: 3E0P3VZ Introduction of Hormone into Female Reproductive, Percutaneous Approach (ICD-10-PCS; 2017-02-12)
PROC: 10907ZC Drainage of Amniotic Fluid, Therapeutic from Products of Conception, Via Natural or Artificial Opening (ICD-10-PCS; 2017-02-12)
DX: O69.1XX0 Labor and delivery complicated by cord around neck, with compression, not applicable or unspecified (principal); Z3A.39 39 weeks gestation of pregnancy; Z37.0 Single live birth
CPT/HCPCS: 01967; 36415; 51702; 59025; 59409; 85027; 86850; 86900; 86901; A9270-GY; J0290; J2590; J7030; J7050; J7120

== ENCOUNTER 2018-10-25 12:41 | Emergency (ER) | payer BC ==
--- NOTE | 2018-10-25 12:50 | EDM.PDOC ---
ED HPI GENERAL MEDICAL PROBLEM - General Chief Complaint: Lower Extremity Injury/Pain Stated Complaint: CATRACHO CROWDER FOOT Time Seen by Provider: 10/25/18 12:49 Source of Information: Reports: Patient History Limitations: Reports: No Limitations - History of Present Illness INITIAL COMMENTS - FREE TEXT/NARRATIVE: HISTORY AND PHYSICAL: History of present illness: Patient is a 27-year-old female presents to the ED with complaint of right foot pain. She states she dropped a can of tomatoes on her foot this morning. She has been able to walk on it without difficulty. Denies proximal pain or injury. Review of systems: As per history of present illness and below otherwise all systems reviewed and negative. Past medical history: As per history of present illness and as reviewed below otherwise noncontributory. Surgical history: As per history of present illness and as reviewed below otherwise noncontributory. Social history: No reported history of drug or alcohol abuse. Family history: As per history of present illness and as reviewed below otherwise noncontributory. Physical exam: General: Patient sitting comfortably in no acute distress and nontoxic appearing HEENT: Atraumatic, normocephalic, pupils reactive, negative for conjunctival pallor or scleral icterus, mucous membranes moist, throat clear, neck supple, nontender, trachea midline. No meningeal signs. Lungs: Clear to auscultation, breath sounds equal bilaterally, chest nontender. Heart: S1S2, regular, negative for clicks, rubs, or overt murmur. Abdomen: Soft, nondistended, nontender. Negative for masses or hepatosplenomegaly. Negative for costovertebral tenderness. No rigidity, rebound , guarding. Pelvis: Stable nontender. Genitourinary: Deferred. Rectal: Deferred. Extremities: Atraumatic, negative for cords or calf pain. Neurovascular unremarkable. Neuro: Awake, alert, oriented. Cranial nerves II through XII unremarkable. Cerebellum unremarkable. Motor and sensory unremarkable throughout. Exam nonfocal. Notes: Diagnostics: x-ray left foot Therapeutics: [] Prescriptions: Impression: left foot injury Plan: 1. Ice, elevate, and motrin or tylenol as needed 2. Follow up with orthopedics, please call the number provided to schedule an appointment 3. Return to ED as needed as discussed Definitive disposition and diagnosis as appropriate pending reevaluation and review of above. Left Foot Pain Score (Numeric/FACES): 6 - Related Data Allergies Allergy/AdvReac Type Severity Reaction Status Date / Time No Known Allergies Allergy Verified 10/25/18 12:53 Home Meds: Home Meds . [No Known Home Meds] 10/25/18 [History] Past Medical History HEENT History: Reports: None Cardiovascular History: Reports: None Respiratory History: Reports: None Gastrointestinal History: Reports: GERD Genitourinary History: Reports: None W[employer] SPECIALIST History: Reports: Psychiatric History: Reports: Anxiety, Depression Endocrine/Metabolic History: Reports: None Hematologic History: Reports: None Immunologic History: Reports: None Oncologic (Cancer) History: Reports: None Dermatologic History: Reports: Psoriasis - Infectious Disease History Infectious Disease History: Reports: Chicken Pox, Herpes - Past Surgical History HEENT Surgical History: Reports: Adenoidectomy, Tonsillectomy GI Surgical History: Reports: Appendectomy Social & Family History - Family History Family Medical History: Noncontributory HEENT: Reports: Impaired Vision Cardiac: Reports: Heart Failure, Hypertension : Reports: Pyelonephritis OBGYN: Reports: , Recurrent Spontaneous Musculoskeletal: Reports: Arthritis, RA Neurological: Reports: Alzheimers Disease Psychiatric: Reports: Anxiety, Autism, Depression, Mood Swings, Panic Attack Endocrine/Metabolic: Reports: Diabetes, Type I, Hypothyroidism Oncologic: Reports: Lung, Skin, Other (See Below) Other Oncologic Family History: melanoma - Caffeine Use Caffeine Use: Reports: Coffee Review of Systems - Review of Systems Review Of Systems: ROS reveals no pertinent complaints other than HPI. ED EXAM, GENERAL - Physical Exam Exam: See Below (see dictation) Course - Vital Signs Last Recorded V/S: Last Vital Signs Temp 97.8 F 10/25/18 12:48 Pulse 82 10/25/18 12:48 Resp 18 10/25/18 12:48 BP 133/85 10/25/18 12:48 Pulse Ox 99 10/25/18 12:48 Departure - Departure Time of Disposition: 13:53 Disposition: Home, Self-Care 01 Condition: Good Clinical Impression: Injury of left foot - Discharge Information Referrals: Bandar Alfonso MD [Primary Care Provider] - Forms: ED Department Discharge Additional Instructions: The following information is given to patients seen in the emergency department who are being discharged to home. This information is to outline your options for follow-up care. We provide all patients seen in our emergency department with a follow-up referral. The need for follow-up, as well as the timing and circumstances, are variable depending upon the specifics of your emergency department visit. If you don't have a primary care physician on staff, we will provide you with a referral. We always advise you to contact your personal physician following an emergency department visit to inform them of the circumstance of the visit and for follow-up with them and/or the need for any referrals to a consulting specialist. The emergency department will also refer you to a specialist when appropriate. This referral assures that you have the opportunity for follow-up care with a specialist. All of these measure are taken in an effort to provide you with optimal care, which includes your follow-up. Under all circumstances we always encourage you to contact your private physician who remains a resource for coordinating your care. When calling for follow-up care, please make the office aware that this follow-up is from your recent emergency room visit. If for any reason you are refused follow-up, please contact the [facility] Emergency Department at and asked to speak to the emergency department charge nurse. [facility] [address] [place] [address] [facility] [address] [place] [id number] [facility] [address] [place] [id number] 1. Ice, elevate, and motrin or tylenol as needed 2. Follow up with podiatry, please call the number provided to schedule an appointment 3. Return to ED as needed as discussed
--- NOTE | 2018-10-25 13:52 | CR ---
Left foot: Three views of the left foot were obtained. Comparison: No prior foot exam. Joint spaces are preserved. Small unfused os navicularis is seen which is a normal variant. No fracture, dislocation or other bony abnormality is seen. Impression: 1. Nothing acute is appreciated on left foot exam. Diagnostic code #1 MTDD
[2018-10-25 14:05] VITALS: BP 125/58
== END 2018-10-25 14:06 | disposition home or self-care (01) ==
LOC: MW.ED 12:41
DX: S99.922A Unspecified injury of left foot, initial encounter (principal); W20.8XXA Other cause of strike by thrown, projected or falling object, initial encounter
CPT/HCPCS: 73630-26-LT; 73630-LT; 99282; 99283-25

== ENCOUNTER 2021-03-11 08:27 | Emergency (ER) | payer OTHER ==
[2021-03-11] MEDS ORDERED: Sodium Chloride 0.9% 10 ML Syringe FLUSH PRN (08:45)
[2021-03-11] MEDS ORDERED: Sodium Chloride 0.9% 1,000 ML IV ONE (08:45)
[2021-03-11] MEDS ORDERED: Sodium Chloride 0.9% 2.5 ML Syringe FLUSH PRN (08:45)
[2021-03-11] MEDS ORDERED: Acetaminophen 325 MG/10.15 ML ML PO ONE (08:48)
[2021-03-11] MEDS ORDERED: Acetaminophen 325 MG Tab PO ONE (08:57)
[2021-03-11 09:46] LABS: BLOOD UREA NITROGEN,BUN 8 mg/dL (7.0-18.0); CARBON DIOXIDE,CO2 19.6 mmol/L (21.0-32.0); CHLORIDE,CL 98 mmol/L (98-107); GLUCOSE RANDOM 88 mg/dL (74-106); LIPASE 40 U/L (73-393); POTASSIUM,K 3.4 mmol/L (3.5-5.1); SODIUM,NA 135 mmol/L (136-145)
[2021-03-11 09:48] VITALS: BP 108/68; PULSE 67
[2021-03-11 09:56] LABS: CORONAVIRUS COVID-19 NAA NEGATIVE (NEGATIVE); INFLUENZA A NAA NEGATIVE (NEGATIVE); INFLUENZA B NAA NEGATIVE (NEGATIVE); RESPIRATORY SYNCYTIAL VIR NAA NEGATIVE (NEGATIVE)
== END 2021-03-11 10:16 | disposition home or self-care (01) ==
LOC: MW.ED 08:27
DX: N12 Tubulo-interstitial nephritis, not specified as acute or chronic (principal); Z20.822 Contact with and (suspected) exposure to COVID-19
CPT/HCPCS: 0241U; 36415; 80053; 81001; 81025; 83690; 85025; 87086; 99284; A9270; J7030

== ENCOUNTER 2021-10-05 08:13 | Emergency (ER) | payer OTHER ==
[2021-10-05 10:14] VITALS: BP 130/76; PULSE 73
== END 2021-10-05 10:12 | disposition home or self-care (01) ==
LOC: MW.ED 08:13
DX: N97.0 Female infertility associated with anovulation (principal)
CPT/HCPCS: 36415; 81025; 84702; 85025; 99284

== ENCOUNTER 2022-03-09 18:15 | Emergency (ER) | payer SELFPAY ==
[2022-03-09 19:39] LABS: CORONAVIRUS COVID-19 NAA NEGATIVE (NEGATIVE); INFLUENZA A NAA NEGATIVE (NEGATIVE); INFLUENZA B NAA NEGATIVE (NEGATIVE); RESPIRATORY SYNCYTIAL VIR NAA NEGATIVE (NEGATIVE)
[2022-03-09] MEDS ORDERED: Sodium Chloride 0.9% 1,000 ML IV ONE (20:10)
[2022-03-09] MEDS ORDERED: Ondansetron 4 MG/2 ML SDV IVPUSH ONE (20:10)
[2022-03-09 21:36] LABS: CARBON DIOXIDE,CO2 23.2 mmol/L (21.0-32.0); POTASSIUM,K 3.4 mmol/L (3.5-5.1)
[2022-03-09 23:17] VITALS: BP 110/62; PULSE 89
== END 2022-03-09 23:05 | disposition home or self-care (01) ==
LOC: MW.ED 18:15
DX: O99.612 Diseases of the digestive system complicating pregnancy, second trimester (principal); K52.9 Noninfective gastroenteritis and colitis, unspecified; Z3A.17 17 weeks gestation of pregnancy; Z20.822 Contact with and (suspected) exposure to COVID-19
CPT/HCPCS: 0241U; 36415; 80053; 81003; 85025; 96361; 96374; 99284; J2405; J7030

== ENCOUNTER 2022-08-10 05:11 | Inpatient (IN) | payer BC ==
[2022-08-10] MEDS: Lactated Ringers 1,000 ML IV SCH ×4 (05:20→17:27)
[2022-08-10] MEDS ORDERED: Methylergonovine 0.2 MG/1 ML Amp IM PRN (05:32)
[2022-08-10] MEDS ORDERED: Butorphanol 1 MG/ML SDV IVPUSH PRN (05:32)
[2022-08-10] MEDS ORDERED: Sodium Chloride 0.9% 2.5 ML Syringe FLUSH PRN (05:32)
[2022-08-10] MEDS ORDERED: Water For Irrigation,Sterile 1,000 ML Container IRR PRN (05:32)
[2022-08-10] MEDS ORDERED: Sodium Chloride 0.9% 10 ML Syringe FLUSH PRN (05:32)
[2022-08-10] MEDS ORDERED: Misoprostol 200 MCG Tab PO PRN (05:32)
[2022-08-10] MEDS ORDERED: Sodium Chloride 0.9% 20 ML SDV IV PRN (05:32)
[2022-08-10] MEDS ORDERED: Tranexamic Acid 1,000 MG in Sodium Chloride 0.9% 100 ML IV PRN (05:32)
[2022-08-10] MEDS ORDERED: Carboprost Tromethamine 250 MCG/1 mL Vial IM PRN (05:32)
[2022-08-10] MEDS ORDERED: Lidocaine 1% 50 ML MDV INJECT PRN (05:32)
[2022-08-10] MEDS ORDERED: Terbutaline 1 MG/ML SDV SUBCUT PRN (05:32)
[2022-08-10] MEDS ORDERED: Ondansetron 4 MG/2 ML SDV IVPUSH PRN (05:32)
[2022-08-10] MEDS ORDERED: Oxytocin/0.9 % Sodium Chloride 30 UNIT/500 ML BAG IV SCH ×2 (05:45)
[2022-08-10 05:57] LABS: HEMATOCRIT 34.9 % (36.0-46.0); HEMOGLOBIN 11.6 g/dL (12.0-16.0); MEAN CORPUSCULAR HEMOGLOBIN 27.8 pg (27.0-32.0); MEAN CORPUSCULAR HGB CONC 33.2 g/dL (31.0-37.0); MEAN CORPUSCULAR VOLUME 83.5 fL (80.0-98.0); MEAN PLATELET VOLUME 10.9 fL (7.40-12.00); RED BLOOD CELL COUNT 4.18 M/uL (4.30-5.90); WHITE BLOOD CELL COUNT,WBC 10.72 K/uL (4.0-11.0)
[2022-08-10] MEDS ORDERED: ePHEDrine 50 MG/ML SDV IVPUSH PRN ×2 (10:01)
[2022-08-10] MEDS ORDERED: Phenylephrine HCl 0.5 MG/5 ML AMP IVPUSH PRN (10:01)
[2022-08-10] MEDS ORDERED: Ropivacaine HCl/PF 400 MG in Premix Bag 1 BAG EPIDUR SCH (10:15)
[2022-08-10] MEDS ORDERED: Dexmedetomidine 200 MCG/2 ML SDV ONE (11:47)
[2022-08-10] MEDS ORDERED: Witch Hazel Medicated Pads 40/Jar TOP PRN (22:22)
[2022-08-10] MEDS ORDERED: Lanolin 100% Cream 7 GM Tube TOP PRN (22:22)
[2022-08-10] MEDS ORDERED: Ibuprofen 400 MG Tab PO PRN (22:22)
[2022-08-10] MEDS ORDERED: oxyCODONE 5 MG Tab PO PRN (22:22)
[2022-08-10] MEDS ORDERED: Docusate Sodium 100 MG Cap PO PRN (22:22)
[2022-08-10] MEDS ORDERED: Benzocaine/Menthol 20%-0.5% Spray 78 GM Cannister TOP PRN (22:22)
[2022-08-10] MEDS ORDERED: Bisacodyl 10 MG Supp RECTAL PRN (22:22)
[2022-08-10] MEDS ORDERED: Measles, Mumps & Rubella Vaccine 0.5 ML SDV SUBCUT ONE (22:22)
[2022-08-10] MEDS ORDERED: Acetaminophen 500 MG Tab PO PRN ×2 (22:22)
[2022-08-10 22:55] LABS: PH,UMBILICAL ARTERIAL 7.291 (7.18-7.38)
[2022-08-10 22:56] LABS: PH,UMBILICAL VENOUS 7.307 (7.25-7.45)
[2022-08-10] MEDS: Ibuprofen 800 MG Tab PO PRN (23:36)
[2022-08-11 05:41] LABS: HEMATOCRIT 31.5 % (36.0-46.0); HEMOGLOBIN 10.4 g/dL (12.0-16.0)
[2022-08-11] MEDS: Ibuprofen 800 MG Tab PO PRN (17:21)
[2022-08-12 08:34] VITALS: BP 118/67; PULSE 81
== END 2022-08-12 13:17 | disposition home or self-care (01) | DRG 560 ==
LOC: MW.OBCHECK 05:11 → MW.OB 05:13 → MW.OBCHECK 05:32 → OBSVTOIN 22:05 → MW.OB 08-11 00:58
PROVIDERS: ADMIT Obstetrics & Gynecology; ATTEND Obstetrics & Gynecology
PROC: 10E0XZZ Delivery of Products of Conception, External Approach (ICD-10-PCS; principal; 2022-08-10)
PROC: 10907ZC Drainage of Amniotic Fluid, Therapeutic from Products of Conception, Via Natural or Artificial Opening (ICD-10-PCS; 2022-08-10)
PROC: 3E033VJ Introduction of Other Hormone into Peripheral Vein, Percutaneous Approach (ICD-10-PCS; 2022-08-10)
PROC: 3E0R3BZ Introduction of Anesthetic Agent into Spinal Canal, Percutaneous Approach (ICD-10-PCS; 2022-08-10)
PROC: 00HU33Z Insertion of Infusion Device into Spinal Canal, Percutaneous Approach (ICD-10-PCS; 2022-08-10)
DX: O99.62 Diseases of the digestive system complicating childbirth (principal); K21.9 Gastro-esophageal reflux disease without esophagitis; Z3A.39 39 weeks gestation of pregnancy; Z37.0 Single live birth
CPT/HCPCS: 01967; 36415; 51702; 59025; 59409; 82803; 85014; 85018; 85027; 86592; 86850; 86900; 86901; A9270-GY; J2590; J3490; J7120

== ENCOUNTER 2024-03-11 01:51 | Emergency (ER) | payer SELFPAY ==
[2024-03-11] MEDS: Benzocaine 20% Topical Spray UD MUCMEM ONE (04:03)
[2024-03-11] MEDS: Lidocaine 2% Viscous Solution 15 ML UD PO ONE (04:04)
[2024-03-11] MEDS: Bupivacaine 0.5% 10 ML SDV INJECT ONE (04:06)
[2024-03-11 05:08] VITALS: BP 107/71; PULSE 79
== END 2024-03-11 05:07 | disposition home or self-care (01) ==
LOC: MW.ED 01:51
DX: K08.89 Other specified disorders of teeth and supporting structures (principal); Z79.899 Other long term (current) drug therapy
CPT/HCPCS: 64400; 99283; A9270; J0665; 99282

== ENCOUNTER 2024-07-02 05:01 | Inpatient (IN) | payer BC ==
[2024-07-02] MEDS ORDERED: Terbutaline 1 MG/ML SDV SUBCUT PRN (05:21)
[2024-07-02] MEDS ORDERED: Sodium Chloride 0.9% 10 ML Syringe FLUSH PRN (05:21)
[2024-07-02] MEDS ORDERED: Ondansetron 4 MG/2 ML SDV IVPUSH PRN (05:21)
[2024-07-02] MEDS ORDERED: Misoprostol 200 MCG Tab RECTAL PRN (05:21)
[2024-07-02] MEDS ORDERED: Butorphanol 1 MG/ML SDV IVPUSH PRN (05:21)
[2024-07-02] MEDS ORDERED: Sodium Chloride 0.9% 2.5 ML Syringe FLUSH PRN (05:21)
[2024-07-02] MEDS ORDERED: Methylergonovine 0.2 MG/1 ML Amp IM PRN (05:21)
[2024-07-02] MEDS ORDERED: Lidocaine 1% 50 ML MDV INJECT PRN (05:21)
[2024-07-02] MEDS ORDERED: Misoprostol 200 MCG Tab PO PRN (05:21)
[2024-07-02] MEDS ORDERED: Sodium Chloride 0.9% 20 ML SDV IV PRN (05:21)
[2024-07-02] MEDS ORDERED: Carboprost Tromethamine 250 MCG/1 mL Vial IM PRN (05:21)
[2024-07-02] MEDS ORDERED: Water For Irrigation,Sterile 1,000 ML Container IRR PRN (05:21)
[2024-07-02] MEDS ORDERED: Oxytocin/0.9 % Sodium Chloride 30 UNIT/500 ML BAG IV SCH (05:30)
[2024-07-02 05:53] LABS: HEMOGLOBIN 12.5 g/dL (12.0-16.0); MEAN CORPUSCULAR HEMOGLOBIN 28.2 pg (28.0-32.0); MEAN CORPUSCULAR HGB CONC 32.9 g/dL (32.0-36.0); MEAN CORPUSCULAR VOLUME 85.6 fL (83.0-99.0); MEAN PLATELET VOLUME 10.2 fL (9.4-12.3); PLATELET COUNT,PLT 286 K/uL (150-400); RED BLOOD CELL COUNT 4.44 M/uL (4.10-5.30); WHITE BLOOD CELL COUNT,WBC 11.08 K/uL (3.9-11.3)
[2024-07-02] MEDS: Oxytocin/0.9 % Sodium Chloride 30 UNIT/500 ML BAG IV SCH (05:53)
[2024-07-02] MEDS: Lactated Ringers 1,000 ML IV SCH (05:53)
[2024-07-02] MEDS ORDERED: Phenylephrine HCl In 0.9% NaCl 1 MG/10 ML Syringe IVPUSH PRN (07:10)
[2024-07-02] MEDS ORDERED: ePHEDrine 50 MG/ML SDV IVPUSH PRN (07:10)
[2024-07-02] MEDS ORDERED: dexmedeTOMIDine HCl 200 MCG/2 ML SDV EPIDUR SCH (07:15)
[2024-07-02] MEDS: Ropivacaine HCl/PF 400 MG in Premix Bag 1 BAG EPIDUR SCH (09:54)
[2024-07-02] MEDS ORDERED: Ibuprofen 800 MG Tab PO PRN (15:50)
[2024-07-02] MEDS ORDERED: Lanolin 100% Cream 7 GM Tube TOP PRN (15:50)
[2024-07-02] MEDS ORDERED: oxyCODONE 5 MG Tab PO PRN (15:50)
[2024-07-02 16:56] LABS: PH,UMBILICAL ARTERIAL 7.25 (7.18-7.38); PH,UMBILICAL VENOUS 7.37 (7.25-7.45)
[2024-07-02] MEDS: Witch Hazel Medicated Pads 40/Jar TOP PRN (18:18)
[2024-07-02] MEDS: Benzocaine/Menthol 20%-0.5% Spray 78 GM Cannister TOP PRN (18:20)
[2024-07-02] MEDS: Acetaminophen 500 MG Tab PO PRN (18:21)
[2024-07-03 05:56] LABS: HEMATOCRIT 39.3 % (37.0-47.0); HEMOGLOBIN 12.9 g/dL (12.0-16.0)
[2024-07-03] MEDS: Docusate Sodium 100 MG Cap PO PRN (09:15)
[2024-07-03] MEDS: Measles, Mumps & Rubella Vaccine 0.5 ML SDV SUBCUT ONE (18:12)
[2024-07-03 18:37] VITALS: BP 117/67; PULSE 80
== END 2024-07-03 18:28 | disposition home or self-care (01) | DRG 560 ==
LOC: MW.OBCHECK 05:01 → MW.OB 05:02 → MW.OBCHECK 05:21 → OBSVTOIN 05:21 → MW.OB 05:21
PROVIDERS: ADMIT Obstetrics & Gynecology; ATTEND Obstetrics & Gynecology
PROC: 10E0XZZ Delivery of Products of Conception, External Approach (ICD-10-PCS; principal; 2024-07-02)
PROC: 3E033VJ Introduction of Other Hormone into Peripheral Vein, Percutaneous Approach (ICD-10-PCS; 2024-07-02)
PROC: 3E0R3BZ Introduction of Anesthetic Agent into Spinal Canal, Percutaneous Approach (ICD-10-PCS; 2024-07-02)
PROC: 3E0234Z Introduction of Serum, Toxoid and Vaccine into Muscle, Percutaneous Approach (ICD-10-PCS; 2024-07-02)
DX: O99.344 Other mental disorders complicating childbirth (principal); O98.52 Other viral diseases complicating childbirth; F41.9 Anxiety disorder, unspecified; F84.0 Autistic disorder; F32.A Depression, unspecified; Z37.0 Single live birth; Z3A.39 39 weeks gestation of pregnancy; Z90.49 Acquired absence of other specified parts of digestive tract; Z79.899 Other long term (current) drug therapy; Z23 Encounter for immunization
CPT/HCPCS: 36415; 51702; 59025; 59409; 82803; 85014; 85018; 85027; 86592; 86850; 86900; 86901; 90471; 90707; A9270-GY; J2590; J2795; J7120